=== PATIENT | male | born 1945 | race Caucasian/White ===

== ENCOUNTER 2021-08-31 08:20 | Day surgery (SDC) | payer MEDICARE, OTHER ==
[~2021-08-31] VITALS: Ht 180.3 cm; Wt 122.0 kg
[~2021-08-31 08:20] MED LIST: ALLOPURINOL300 MG PO; B COMPLEX1 EACH PO; BYSTOLIC5 MG PO; CHLORTHALIDONE25 MG PO; CO Q-10200 MG PO; DEPO-TESTO100 MG/1 M IM; EDARBI80 MG PO; FENOFIBRATE145 MG PO; FLAXSEED1000 MG PO; FLOMAX0.4 MG PO; VITAMIN D31250 MC1 PO
--- NOTE | 2021-08-31 10:23 | NUR ---
08/31/21 Char3 Sue Herring 1013- PT ARRIVES TO PACU ALERT AND ORIENTED. PT REPORTS NO PAIN OR NAUSEA. RESP EVEN AND UNLABORED. OXYGEN SAT MID 90'S ON 2L VIA NC. PT PASSING FLATUS. 1018- PT CONTINUES TO PASS FLATUS. 1022- OXYGEN TITRATED OFF.
--- NOTE | 2021-08-31 16:40 | OR ---
[facility] [address] [place], [place] [address] Signed DATE OF OPERATION: 08/31/2021 SURGEON: Jae Babin MD PREOPERATIVE DIAGNOSES: 1. Personal history of multiple colonic polyps. 2. Paternal grand mother with colon cancer, father with colon cancer, requiring a colostomy and at age 38. POSTOPERATIVE DIAGNOSES: 1. 4 mm polyps at 7 cm, distal right colon, 55 cm, 20 cm and 10 cm. 2. Moderate nathan diverticulosis. 3. [id number]-[id number] internal hemorrhoids with associated skin tags. PROCEDURE: Colonoscopy with hot biopsy. ESTIMATED BLOOD LOSS: None. INDICATIONS: Jagdish is a 76-year-old gentleman, asked to see me for followup colonoscopy. He recalls at least three previous colonoscopies while he lives in [place]. He said several polyps removed during each colonoscopy. He was asked to follow up every five years. He explained that his paternal grandmother had colon cancer. His father had colon cancer, required a colostomy bag. His father from the colon cancer at age 38. Jagdish has no lower GI complaints. In the office, I gave Amanda pamphlet on colonoscopy. He recalls the test well. There is risk including, but not limited to gas bloating, crampy abdominal pain, bleeding, perforation requiring surgery, and missed diagnosis. We also discussed the need for IV conscious sedation. He had expressed understanding, wished to proceed. PROCEDURE NOTE: Jagdish was taken into our endoscopy suite and placed in the left lateral decubitus position. He was given IV sedation with 5 mg of Versed and 150 mcg of fentanyl. A digital rectal exam was performed and this was unremarkable. The adult colonoscope was introduced and advanced all around into the cecum under direct visualization of camera without difficulty. His prep was good. We could easily see the appendiceal orifice and the ileocecal valve. The scope was slowly withdrawn. He has moderate diverticula throughout his entire colon. They were moderate in size few in number, and scattered Electronically Signed By: JAE BABIN MD 08/31/21 1640 PATIENT NAME: MIMI SHAH OPERATIVE REPORT DATE OF : 43 REPORT #: [id number] PHYSICIAN: JAE BABIN MD PCP: BJ CISNEROS MD REPORT IS CONFIDENTIAL AND NOT TO BE RELEASED WITHOUT AUTHORIZATION [facility] [address] [place], [place] [address] Signed about. The above-mentioned polyps were easily removed with the help of hot biopsy forceps. The scope had been retroflexed in the rectum and he does have minimal to moderate internal hemorrhoid columns associated with the skin tags. After this, the gas was suctioned out, colonoscope removed. Jagdish tolerated the procedure quite well. RECOMMENDATIONS: I will see Jagdish back in my office in 7 to 14 days to review his results. It looks like he will stay on the 5-year rotation. Jae Babin MD ALB/MODL /[id number] cc: Bj Cisneros PATIENT Copies: ~ Electronically Signed By: JAE BABIN MD 08/31/21 1640 PATIENT NAME: ALYSSASHAYLACLIFF RODRIGUEZ OPERATIVE REPORT DATE OF : 43 REPORT #: [id number] PHYSICIAN: JAE BABIN MD PCP: BJ CISNEROS MD REPORT IS CONFIDENTIAL AND NOT TO BE RELEASED WITHOUT AUTHORIZATION
--- NOTE | 2021-09-04 11:57 | PATH ---
[facility] [address] [place], [place] [address] Signed SPECIMEN(S): A COLON POLYP AT 7 CM SPECIMEN(S): B DISTAL ASCENDING/RIGHT COLON POLYP SPECIMEN(S): C COLON POLYP AT 55 CM SPECIMEN(S): D COLON POLYP AT 28 CM SPECIMEN(S): E COLON POLYP AT 10 CM SPECIMEN SOURCE: A. COLON POLYP AT 7 CM B. DISTAL ASCENDING/RIGHT COLON POLYP C. COLON POLYP AT 55 CM D. COLON POLYP AT 28 CM E. COLON POLYP AT 10 CM CLINICAL HISTORY: History of polyps, History of bladder ca. Family history of colon ca. Post op: Colorectal polyps, internal hemorrhoids, diverticulosis. FINAL PATHOLOGIC DIAGNOSIS: A. Colon, polyp at 7 cm, polypectomy: - Cauterized colonic mucosa with no identified histopathologic abnormality. - Negative for dysplasia or malignancy. B. Colon, distal ascending/right, polyp, polypectomy: - Tubular adenoma. - Negative for high-grade dysplasia or malignancy. C. Colon, polyp at 55 cm, polypectomy: - Fragments of tubular adenoma. - Negative for high-grade dysplasia or malignancy. D. Colon, polyp at 28 cm, polypectomy: - Hyperplastic polyp. - Negative for dysplasia or malignancy. E. Colon, polyp at 10 cm, polypectomy: - Hyperplastic polyp. - Negative for dysplasia or malignancy. NAL:cml:C2NR MICROSCOPIC EXAMINATION: Histologic sections of all submitted blocks are examined by light microscopy. These findings, together with the gross examination, support the pathologic diagnosis. GROSS DESCRIPTION: PATIENT NAME: MIMI SHAH PATHOLOGY DATE OF : 43 REPORT #: [id number] PHYSICIAN: TIMOTHY ALEJANDRO PCP: ANISH CISNEROS MD REPORT IS CONFIDENTIAL AND NOT TO BE RELEASED WITHOUT AUTHORIZATION [facility] [address] [place], [place] [address] Signed Five specimens are received in five containers, labeled "BB." A. The specimen, labeled "BB, colon polyp at 7 cm," is received in formalin and consists of one cunningham soft tissue fragments that measures 0.2 cm in greatest dimension. The specimen is entirely submitted in cassette (A1). B. The specimen, labeled "BB, distal ascending colon polyp," is received in formalin and consists of one cunningham soft tissue fragment that measures 0.2 cm in greatest dimension. The specimen is entirely submitted in cassette (B1). C. The specimen, labeled "BB, colon polyp at 55 cm," is received in formalin and consists of one cunningham soft tissue fragment that measures 0.2 cm in greatest dimension. The specimen is entirely submitted in cassette (C1). D. The specimen, labeled "BB, colon polyp at 28 cm," is received in formalin and consists of one cunningham soft tissue fragment that measures 0.2 cm in greatest dimension. The specimen is entirely submitted in cassette (D1). E. The specimen, labeled "BB, colon polyp at 10 cm," is received in formalin and consists of one cunningham soft tissue fragment that measures 0.1 cm in greatest dimension. The specimen is entirely submitted in cassette (E1). JS (under the direct supervision of a pathologist) The Gross Description was prepared using a voice recognition system. The report was reviewed for accuracy; however, sound-alike word errors, addition and/or deletions may occur. If there is any question about this report, please contact Client Services. PERFORMING LABORATORY: The technical component was performed by [facility], [address] [place] [id number] (Limnologist: Amarilis Montez MD; CLIA# [id number]). Professional interpretation was performed by [facility], [address] [place], [place] [address] (CLIA# [id number]). Diagnostician: Gabby Gordillo MD Pathologist Electronically Signed 09/04/2021 Copies: PATIENT NAME: MIMI SHAH PATHOLOGY DATE OF : 43 REPORT #: [id number] PHYSICIAN: TIMOTHY PATHOLOGY PCP: ANISH CISNEROS MD REPORT IS CONFIDENTIAL AND NOT TO BE RELEASED WITHOUT AUTHORIZATION [facility] [address] [facility] [place], [place] [address] Signed ~ PATIENT NAME: MIMI SHAH PATHOLOGY DATE OF : 43 REPORT #: [id number] PHYSICIAN: TIMOTHY ALEJANDRO PCP: ANISH CISNEROS MD REPORT IS CONFIDENTIAL AND NOT TO BE RELEASED WITHOUT AUTHORIZATION
== END 2021-08-31 11:00 | disposition home or self-care (01) ==
LOC: DS 08:20 → OPS 08:20
PROVIDERS: ATTEND Colon & Rectal Surgery
PROC: 0DBE8ZZ Excision of Large Intestine, Via Natural or Artificial Opening Endoscopic (ICD-10-PCS; principal; 2021-08-31 09:45)
DX: D12.2 Benign neoplasm of ascending colon (principal); K57.30 Diverticulosis of large intestine without perforation or abscess without bleeding; K64.8 Other hemorrhoids; K64.4 Residual hemorrhoidal skin tags; I12.9 Hypertensive chronic kidney disease with stage 1 through stage 4 chronic kidney disease, or unspecified chronic kidney disease; N18.32 Chronic kidney disease, stage 3b; M10.9 Gout, unspecified; E78.1 Pure hyperglyceridemia; Z86.010 Personal history of colon polyps; Z80.0 Family history of malignant neoplasm of digestive organs; Z85.51 Personal history of malignant neoplasm of bladder
CPT/HCPCS: 99153; G0500; J2250; J3010; J7121